=== PATIENT | female | born 1990 | race Two or more races ===

== ENCOUNTER 2017-02-10 09:00 | Inpatient (IN) | payer MEDICAID ==
[~2017-02-10] VITALS: Ht 157.5 cm; Wt 66.4 kg
[~2017-02-10 09:00] MED LIST: FERR27TA; PREN1TAB49
[2017-02-10 09:33] VITALS: Ht 157.5 cm; Wt 66.4 kg
[2017-02-10 09:39] VITALS: BP 122/71
[2017-02-10] MEDS: LACTATED RINGER'S 1,000 ML IV SCH ×3 (09:57→19:55)
[2017-02-10] MEDS ORDERED: OXYTOCIN 30 UNITS/LR 500 ML IV SCH (10:00)
[2017-02-10] MEDS ORDERED: IBUPROFEN 600 MG TAB PO PRN (10:00)
[2017-02-10] MEDS ORDERED: MISOPROSTOL 200 MCG TAB PR PRN (10:00)
[2017-02-10] MEDS ORDERED: BUTORPHANOL 2 MG INJ IV PRN ×2 (10:00)
[2017-02-10] MEDS ORDERED: LIDOCAINE 1% (MPF) 30 ML INJ INJ PRN (10:00)
[2017-02-10] MEDS ORDERED: OXYTOCIN 30 UNITS/LR 500 ML IV PRN (10:00)
[2017-02-10] MEDS ORDERED: CARBOPROST 250 MCG INJ IM PRN (10:00)
[2017-02-10] MEDS ORDERED: METHYLERGONOVINE 0.2 MG INJ IM PRN (10:00)
[2017-02-10 10:31] LABS: ADD SCAN DIFF NO
[2017-02-10 10:50] LABS: BASOPHILS % 0.2 % (0.0-2.0); EOSINOPHILS % 0.2 % (0.0-7.0); HEMATOCRIT 48.1 % (37.0-47.0); HEMOGLOBIN 15.8 g/dl (12.0-16.0); LYMPHOCYTES # 2.5 10^3/ul (0.8-2.9); LYMPHOCYTES % 18.5 % (15.0-51.0); MEAN CORPUSCULAR HEMOGLOBIN 29.9 pg (29.0-33.0); MEAN CORPUSCULAR HGB CONC 32.8 g/dl (32.0-37.0); MEAN CORPUSCULAR VOLUME 91.1 fl (82.0-101.0); MEAN PLATELET VOLUME 11.1 fl (7.4-10.4); MONOCYTE # 0.8 10^3/ul (0.3-0.9); MONOCYTES % 5.9 % (0.0-11.0); NEUTROPHIL # 9.9 10^3/ul (1.6-7.5); NEUTROPHILS % 74.4 % (39.0-77.0); PLATELET COUNT 208 10^3/UL (140-415); RED BLOOD COUNT 5.28 10^6/ul (4.20-5.40); RED CELL DISTRIBUTION WIDTH 17.6 % (11.5-14.5); WHITE BLOOD COUNT 13.3 10^3/ul (4.8-10.8)
[2017-02-10 10:55] LABS: INR 0.93; PROTIME 12.5 Sec (12.2-14.2)
[2017-02-10 10:56] LABS: PARTIAL THROMBOPLASTIN TIME 26.3 Sec (25.0-35.0)
--- NOTE | 2017-02-10 11:24 | RADRPT ---
PROCEDURE: US OB. CLINICAL INDICATION: Size and dates, amniotic fluid index. TECHNIQUE: Multiple sonographic images of the pelvis were obtained. Transabdominal imaging only w as performed. The images were reviewed on a PACS workstation. COMPARISON: No prior studies are available for comparison. FINDINGS: There is a single living intrauterine gestation in cephalic position. There is an anterior placenta. There is no evidence of previa. Adequate amnionic fluid is demonstrated. The amniotic fluid index is 13 point save cm. Active cardiac motion is seen at 148 beats per minute. Position of the head is low and difficult to measure. The abdominal circumference is 36.03 cm consistent with a 60-fmfc-1-day gestation. The femur length is 7.59 cm consistent with 18-jyuh-7-day gestation. The estimated weight is 2148 plus or minus 616 g IMPRESSION: 1. Single living intrauterine gestation in cephalic position with a mean gestational age by ultrasound of 39 weeks 3 days plus or minus 19 days with estimated date of delivery of 02/14/2017. 2. Amniotic fluid index is 13.6 cm. 3. Estimated weight is 3148 plus or minus 616 g. RPTAT: [facility] Physician Abigail Date Time Electronically viewed and signed by Physician Abigail on 02/10/2017 11:24 /
[2017-02-10] MEDS: LACTATED RINGER'S 1,000 ML IV PRN ×2 (14:03→14:56)
[2017-02-10] MEDS ORDERED: FENTAnyl 2MCG/ML-ROPIV 0.2% 100 ML ONE (14:27)
[2017-02-10 19:22] VITALS: BP 102/55; PULSE 90; RESP 18
[2017-02-10] MEDS: OXYTOCIN 30 UNITS/LR 500 ML IV SCH ×2 (22:34→22:35)
--- NOTE | 2017-02-10 22:50 | HP ---
Date/Time of Note Date/Time of Note DATE: 02/10/17 TIME: 22:47 OB - History Hx of Present Chief Complaint: contractions Estimated Due Date: Feb 09, 2017 : 3 Para: 2 Spontaneous : 0 Therapeutic : 0 Care: Good Care Ultrasounds: Normal mid trimester US Obstetrical Complications: None Medical Complications: None Past Family/Social History * Past Medical, Surgical, Family and Obstetric Histories reviewed from chart. GBS Status: Negative OB Admission Exam Vital Signs Vital Signs Vital Signs Date Time Temp Pulse Resp B/P Pulse Ox O2 Delivery O2 Flow Rate FiO2 02/10/17 19:22 98.9 90 18 102/55 96 Room Air Physical Exam HEENT: WNL Heart: Rhythm Normal Lungs: Clear Abdomen: WNL Extremities: Normal Cervical Dilatation: 3cm Effacement: 50% Station: -1 Membranes: Intact Heart Rate: 140's Accelerations: Accelerations Present Decelerations: No Decelerations Varibility: Moderate Last 72 hours Lab Results CBC & BMP 02/10/17 09:50 OB Assessment/Plan Reason for admission: active labor Plan: Expectant Management DENISE LIVINGSTON MD Feb 10, 2017 22:49
--- NOTE | 2017-02-10 22:53 | LDN ---
Date/Time of Note Date/Time of Note DATE: 02/10/17 TIME: 22:50 Delivery Summary Weeks of Gestation 40 weeks and 1 day Placenta Delivered: Spontaneously Meconium: Light Episiotomy: No Perineal laceration: 2 Laceration repair: Second degree laceration repaired with 3-0 Vicryl and 3-0 chromic Anesthesia type: Epidural Estimated blood loss: 400 Sponge & Needle done & correct: Yes All needle counts correct: Yes Any foreign bodies felt in the: No Problems: Infant Delivery Information Sex Infant Sex: female Apgars 1 Minute: 8 5 Minute: 9 Suctioning Nose & mouth suctioned at prosper: Yes Delee suction performed: No Umbilical Cord Umbilical cord with: 3 Vessels Cord presentations: nuchal cord Nuchal cord present X: 1 Cord Blood was obtained: Yes Mother & Baby Disposition Disposition Mom & Baby to Maternity; Good: Yes DENISE LIVINGSTON MD Feb 10, 2017 22:53
[2017-02-11 00:05] VITALS: BP 118/53; PULSE 83; RESP 19
[2017-02-11] MEDS: LACTATED RINGER'S 1,000 ML IV* SCH ×3 (00:36→16:36)
[2017-02-11 01:00] VITALS: BP 115/56; PULSE 73; RESP 19
[2017-02-11] MEDS ORDERED: CARBOPROST 250 MCG INJ IM PRN (01:00)
[2017-02-11] MEDS ORDERED: DIBUCAINE 1% 30 GM OINT PR PRN (01:00)
[2017-02-11] MEDS ORDERED: WITCH HAZEL/GLYCERIN PAD PR PRN (01:00)
[2017-02-11] MEDS ORDERED: ACETAMINOPHEN/CODEINE #3 TAB PO PRN (01:00)
[2017-02-11] MEDS ORDERED: MISOPROSTOL 200 MCG TAB PR PRN (01:00)
[2017-02-11] MEDS ORDERED: ACETAMINOPHEN 325 MG TAB PO PRN (01:00)
[2017-02-11] MEDS ORDERED: OXYTOCIN 30 UNITS/LR 500 ML IV PRN (01:00)
[2017-02-11] MEDS ORDERED: METHYLERGONOVINE 0.2 MG INJ IM PRN (01:00)
[2017-02-11] MEDS ORDERED: BENZOCAINE 20% 56 ML SPRAY TOP PRN (01:00)
[2017-02-11] MEDS: OXYTOCIN 30 UNITS/LR 500 ML IV SCH ×3 (01:25→05:47)
[2017-02-11 04:10] VITALS: BP 110/59; PULSE 70; RESP 19
[2017-02-11] MEDS: IBUPROFEN 600 MG TAB PO SCH ×4 (05:47→23:32)
[2017-02-11 07:41] LABS: ADD SCAN DIFF NO; BASOPHILS % 0.1 % (0.0-2.0); EOSINOPHILS # 0.1 10^3/ul (0.0-0.5); EOSINOPHILS % 0.4 % (0.0-7.0); HEMATOCRIT 41.7 % (37.0-47.0); HEMOGLOBIN 13.8 g/dl (12.0-16.0); LYMPHOCYTES # 3.3 10^3/ul (0.8-2.9); LYMPHOCYTES % 20.8 % (15.0-51.0); MEAN CORPUSCULAR HEMOGLOBIN 29.7 pg (29.0-33.0); MEAN CORPUSCULAR HGB CONC 33.1 g/dl (32.0-37.0); MEAN CORPUSCULAR VOLUME 89.9 fl (82.0-101.0); MEAN PLATELET VOLUME 10.8 fl (7.4-10.4); MONOCYTE # 1.3 10^3/ul (0.3-0.9); MONOCYTES % 8.2 % (0.0-11.0); NEUTROPHIL # 10.9 10^3/ul (1.6-7.5); NEUTROPHILS % 69.7 % (39.0-77.0); PLATELET COUNT 178 10^3/UL (140-415); RED BLOOD COUNT 4.64 10^6/ul (4.20-5.40); RED CELL DISTRIBUTION WIDTH 17.1 % (11.5-14.5); WHITE BLOOD COUNT 15.6 10^3/ul (4.8-10.8)
[2017-02-11 08:00] VITALS: BP 110/54; PULSE 62; RESP 18
[2017-02-11] MEDS: SENNA/DOCUSATE NA (8.6MG/50MG) TAB PO SCH ×2 (09:16→20:54)
[2017-02-11 16:00] VITALS: BP 112/70; PULSE 80; RESP 18
--- NOTE | 2017-02-11 17:29 | QN ---
Documentation Comment No complaint Afebrile VSS Fundus firm Lochia scant PPD #1 Stable continue present care. DENISE LIVINGSTON MD Feb 11, 2017 17:29
[2017-02-11 19:30] VITALS: BP 105/58; PULSE 64; RESP 19
[2017-02-12] MEDS: LACTATED RINGER'S 1,000 ML IV* SCH ×2 (00:36→08:36)
[2017-02-12 04:13] VITALS: BP 106/57; PULSE 67; RESP 20
[2017-02-12] MEDS: IBUPROFEN 600 MG TAB PO SCH ×2 (05:42→11:46)
[2017-02-12 07:10] LABS: ADD SCAN DIFF NO
[2017-02-12 07:15] LABS: BASOPHILS % 0.2 % (0.0-2.0); EOSINOPHILS # 0.1 10^3/ul (0.0-0.5); EOSINOPHILS % 0.9 % (0.0-7.0); HEMATOCRIT 41.8 % (37.0-47.0); HEMOGLOBIN 13.6 g/dl (12.0-16.0); LYMPHOCYTES # 2.9 10^3/ul (0.8-2.9); LYMPHOCYTES % 25.8 % (15.0-51.0); MEAN CORPUSCULAR HEMOGLOBIN 29.6 pg (29.0-33.0); MEAN CORPUSCULAR HGB CONC 32.5 g/dl (32.0-37.0); MEAN CORPUSCULAR VOLUME 91.1 fl (82.0-101.0); MEAN PLATELET VOLUME 10.8 fl (7.4-10.4); MONOCYTE # 0.7 10^3/ul (0.3-0.9); MONOCYTES % 6.5 % (0.0-11.0); NEUTROPHIL # 7.5 10^3/ul (1.6-7.5); PLATELET COUNT 166 10^3/UL (140-415); RED BLOOD COUNT 4.59 10^6/ul (4.20-5.40); RED CELL DISTRIBUTION WIDTH 17.2 % (11.5-14.5); WHITE BLOOD COUNT 11.3 10^3/ul (4.8-10.8)
[2017-02-12 08:00] VITALS: BP 104/60; RESP 18
[2017-02-12] MEDS: SENNA/DOCUSATE NA (8.6MG/50MG) TAB PO SCH (09:45)
--- NOTE | 2017-02-12 15:24 | DS ---
Date/Time of Note Date/Time of Note DATE: 02/12/17 TIME: 15:23 Obstetrical Discharge Record Final Diagnosis Final Diagnosis: Term delivered Vaginal Delivery Obstetrical Delivery: Spontaneous, Laceration, Repaired Condition on Discharge Physical Assessment Voiding: Yes Bowel Movement: Yes Breast: Soft, non-tender Fundus: Firm Calf Tenderness: No Patient Condition: Stable DENISE LIVINGSTON MD Feb 12, 2017 15:24
[2017-02-12 15:50] VITALS: BP 116/65; PULSE 72; RESP 18
[2017-02-13] MEDS ORDERED: DIPHTH/TET/ACEL PERTUSS (ADULT) 0.5 ML VIAL IM* ONE (09:00)
== END 2017-02-12 16:50 | disposition home or self-care (01) | DRG 775 ==
LOC: L-D 09:13 → PP1 02-11 00:02
PROVIDERS: ADMIT Obstetrics & Gynecology; ATTEND Obstetrics & Gynecology
PROC: 0KQM0ZZ Repair Perineum Muscle, Open Approach (ICD-10-PCS; 2017-02-10)
PROC: 10E0XZZ Delivery of Products of Conception, External Approach (ICD-10-PCS; principal; 2017-02-10 09:00)
DX: O48.0 Post-term pregnancy (principal); O70.1 Second degree perineal laceration during delivery; Z3A.40 40 weeks gestation of pregnancy; Z37.0 Single live birth
CPT/HCPCS: 62319; 76815; 85025; 85610; 85730; 86592; 86900; 86901; 87340; 99464; J2590; J3010; J7120